=== PATIENT | male | born 1960 | race Caucasian/White ===

== ENCOUNTER 2018-04-19 15:25 | Emergency (ER) | payer OTHER, SELFPAY ==
[2018-04-19 16:00] VITALS: BP 122/82; PULSE 107; RESP 16; TEMP 36.8; O2SAT 97
--- NOTE | 2018-04-19 17:09 | DI.RAD_ITS ---
SYMPTOMS/DIAGNOSIS: FALL ON SHOULDER LEFT SHOULDER: Five views were obtained. There is no evidence of an acute fracture or dislocation.
[2018-04-19] MEDS: Acetaminophen 500 MG TAB 1000 MG PO (17:10)
[2018-04-19] MEDS: Ibuprofen 600 MG TAB PO (17:10)
--- NOTE | 2018-04-19 17:14 | ED.GENADUL_ITS ---
Discharge Plan Disposition Patient Disposition: HOME Condition: Fair Discharge Details Chief Complaint: Orthopedic Clinical Impression: Contusion of left shoulder Reason For Visit: left shoulder pain Primary Care Provider: HUEY HOLT ED Provider: Kendra Cruz Home Meds and New Rx's Prescriptions: Continued pilocarpine HCl [Salagen (pilocarpine)] 5 mg Tablet 5 mg PO QID RF: 0 Lantus U-100 Insulin 100 unit/mL Solution 77 unit SUBCUT DAILY RF: 0 nabumetone 750 mg Tablet 750 mg PO DAILY RF: 0 simvastatin [Zocor] 10 mg Tablet 10 mg PO QPM RF: 0 tramadol 50 mg Tablet 50 mg PO DAILY RF: 0 buspirone 7.5 mg Tablet 7.5 mg PO BID RF: 0 allopurinol 300 mg Tablet 300 mg PO DAILY RF: 0 hydrochlorothiazide 25 mg Tablet 25 mg PO DAILY RF: 0 glipizide 5 mg Tablet 10 mg PO DAILY AM RF: 0 olmesartan [Benicar] 40 mg Tablet 40 mg PO DAILY RF: 0 aripiprazole [Abilify] 5 mg Tablet 5 mg PO DAILY RF: 0 bupropion HCl 300 mg Tablet Extended Release 24 Hr 300 mg PO DAILY RF: 0 methylphenidate HCl [Ritalin LA] 20 mg Capsule,Er Biphasic 50-50 20 mg PO QAM RF: 0 methylphenidate HCl [Ritalin LA] 40 mg Capsule,Er Biphasic 50-50 40 mg PO QAM RF: 0 Victoza 2-Boston 0.6 mg/0.1 mL (18 mg/3 mL) Pen Injector 1.8 mg subcut DAILY RF: 0 Discharge Instructions Instructions: Contusion in Adults (ED) Additional Instructions: Encourage rest, ice and elevation. Tylenol and/or ibuprofen as needed for discomfort. Please continue with physical therapy exercises. Luz would be beneficial to help reduce her risk of frozen shoulder. If you develop new or worsening symptoms seek care urgently once again. Otherwise, keep follow-up appointment with orthopedics and upcoming appointment with physical therapy. Avoid activities that greatly increase her pain such as heavy lifting. Referrals: HUEY HOLT [Primary Care Provider] - Medical Decision Making Patient is a 57-year-old [id number] male presenting today with chief complaint left shoulder pain. Patient reports that he is currently in physical therapy for rotator cuff injury to the afflicted side. Reports a prior to arrival he slipped and fell. Reports that he initially fell on his outstretched right hand and suffered a small abrasion to the palm. Then subsequently rolled onto the left shoulder. Pain is primarily lateral and posterior. Denies other injury extremity incident. Did not strike his head, no loss conscious. Patient is concerned for possible fracture dislocation. On exam, no deformity is noted. No pain elicited with palpation. Patient is lacking approximately 10 degrees from full forward elevation. External and internal rotation is equal to that of the contralateral side. Patient has a positive Neer and Hawkin. Negative Speed's exam. No pain with palpation over the clavicle, AC joint or biceps tendon. Will obtian XR to eevaluate for possible bony abnormality. Feel that this is likely exacerbation of his known injury. Will give Tylenol and Ibuprofen for discomfort. Right hand has a very small 2-3mm abrasion to rigt hand, have asked nursing staff to clean. Full ROM, no deformity. Reviewed images, no acute abnormality noted. Awaiting radiology report. XR rebiewed by radiologist: FINDINGS: Lungs: Lateral left upper lobe calcified granuloma. Bones/joints: No fracture. No dislocation. No AC separation. No focal osseous lesion. Soft tissues: No soft tissue radiopaque foreign body or soft tissue calcification. Discussed findings with the patient. Advised contusion and exacerbation of the known underlying etiology. Encouraged patient to continue with PT exercises as previously advised, we advised that he is at risk for adhesive capsulitis. Advised he avoid heavy lifting. discussed new/wrosening symptoms and whento seek care urgently once again. Advised he keep f/u with orthopedics. All ofhis questions and concerns were addressed, he is in agreement with this plan . [facility] General Mode of arrival: ambulatory . Date/Time Provider Initiated Documentation: 04/19/18 17:00 . Limitations to Documentation: no limitations . Information obtained by: patient . History of Present Illness 57 year old M presents to the emergency department with the chief complaint of left shoulder pain, described as moderate, with intensity rated at 8. Quality is described as sharp, and is localized to the upper extremity. Patient reports no radiation. Patient started experiencing this hour(s) and it has been constant. Immobilization improves symptom(s), Movement worsens symptoms . Patient notes no other symptoms.; denies chest pain, diaphoresis, fever/chills, headaches, nausea/vomiting, rash and weakness. Patient did receive the following treatments prior to arrival, none Related Data Home Medications Medication Instructions Recorded Confirmed Lantus U-100 Insulin 77 unit SUBCUT DAILY 04/19/18 04/19/18 Victoza 2-Boston 1.8 mg SUBCUT DAILY 04/19/18 04/19/18 allopurinol 300 mg PO DAILY 04/19/18 04/19/18 aripiprazole [Abilify] 5 mg PO DAILY 04/19/18 04/19/18 bupropion HCl 300 mg PO DAILY 04/19/18 04/19/18 buspirone 7.5 mg PO BID 04/19/18 04/19/18 glipizide 10 mg PO DAILY AM 04/19/18 04/19/18 hydrochlorothiazide 25 mg PO DAILY 04/19/18 04/19/18 methylphenidate HCl [Ritalin LA] 20 mg PO QAM 04/19/18 04/19/18 methylphenidate HCl [Ritalin LA] 40 mg PO QAM 04/19/18 04/19/18 nabumetone 750 mg PO DAILY 04/19/18 04/19/18 olmesartan [Benicar] 40 mg PO DAILY 04/19/18 04/19/18 pilocarpine HCl [Salagen 5 mg PO QID 04/19/18 04/19/18 (pilocarpine)] simvastatin [Zocor] 10 mg PO QPM 04/19/18 04/19/18 tramadol 50 mg PO DAILY 04/19/18 04/19/18 Allergies Allergy/AdvReac Type Severity Reaction Status Date / Time No Known Allergies Allergy Unverified 04/19/18 17:33 General Stated Complaint: Orthopedic NUBIA: 4 Review of Systems Constitutional Reports as per HPI, Denies chills, Denies fever(s), Denies headache(s) and Denies weakness ENT Denies headache(s) Cardiovascular Reports as per HPI Respiratory Reports as per HPI and Denies cough Musculoskeletal Reports as per HPI and Denies tingling Integumentary/Breasts Reports as per HPI, Denies rash and Denies wounds Neurologic Denies headache(s), Denies tingling and Denies weakness Exam Const General: cooperative, healthy appearing, comfortable, no acute distress, well developed and well groomed Nutritional Appearance: well nourished and overweight Orientation: alert and awake Chest Chest: normal inspection of the chest Resp Effort & Inspection: normal respiratory effort, able to speak in complete sentences and no respiratory distress Auscultation: clear to auscultation bilaterally Cardio Rate: regular rate Rhythm: regular rhythm Heart Sounds: S1 normal and S2 normal Skin Trauma: abrasion (very small, superficial abrasion to the right palm) Neuro General: alert and awake Cognition: normal cognition Speech: speech normal Gait: normal gait Motor: muscle tone normal throughout Sensory Exam: no sensory deficits noted Extrem Right upper extremity: normal capillary refill, no joint enlargement and shoulder/upper arm Details: tenderness Location: over the subacromial bursa; not of the clavicle, not of the A-C joint, not of the proximal humerus, not of the mid-shaft humerus and not over the biceps tendon; no swelling, ROM limited (as above), no abrasions, no lacerations, no ecchymosis and no unusual warmth; ROM limited (lacking 10* from full FE, otherwise intact), no cyanosis and no edema Psych Appearance: grossly normal and well kempt Mental Status: mental status grossly normal Speech and Movement: speech and movement normal Course Vital Signs Temperature 36.8 C 04/19/18 16:00 Pulse 107 H 04/19/18 16:00 Respiratory Rate 16 04/19/18 16:00 Blood Pressure 122/82 04/19/18 16:00 Pulse Oximetry 97 04/19/18 16:00 Temperature 36.8 C 04/19/18 16:00 Pulse 107 H 04/19/18 16:00 Respiratory Rate 16 04/19/18 16:00 Blood Pressure 122/82 04/19/18 16:00 Blood Pressure Position Sitting 04/19/18 16:00 Pulse Oximetry 97 04/19/18 16:00 Oxygen Delivery Method Room Air 04/19/18 16:00 Oxygen Flow Rate 0 04/19/18 16:00 Pain Level 8 04/19/18 16:00
--- NOTE | 2018-04-19 18:14 | DI.VRAD_ITS ---
EXAM: XR Left Shoulder Complete, 2 or More Views EXAM DATE/TIME: 04/19/2018 5:10 PM CLINICAL HISTORY: 57 years old, male; left shoulder pain: Fall on left shoulder TECHNIQUE: XR Left shoulder complete 2 or more views. COMPARISON: No relevant prior studies available. FINDINGS: Lungs: Lateral left upper lobe calcified granuloma. Bones/joints: No fracture. No dislocation. No AC separation. No focal osseous lesion. Soft tissues: No soft tissue radiopaque foreign body or soft tissue calcification. IMPRESSION: No acute findings. Dictated and Authenticated by: Robbie Mcgregor MD. Ordering:ELISSA Gardner MD
== END 2018-04-19 18:35 | disposition home or self-care (01) ==
PROVIDERS: Emergency Provider Physician Assistant; PCP Family Medicine
DX: S40.012A Contusion of left shoulder, initial encounter (principal); W01.0XXA Fall on same level from slipping, tripping and stumbling without subsequent striking against object, initial encounter
CPT/HCPCS: 99283; 73030; 99282